=== PATIENT | female | born 1990 ===

== ENCOUNTER 2017-06-03 22:53 | Emergency (ER) | payer SELFPAY ==
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
[2017-06-04 00:10] VITALS: BP 127/73; PULSE 85; RESP 15; TEMP 98.2
[2017-06-04 00:15] VITALS: O2SAT 99
== END 2017-06-04 00:14 | disposition home or self-care (01) ==
LOC: H.ER 22:53
DX: S06.0X0A Concussion without loss of consciousness, initial encounter (principal); Y04.0XXA Assault by unarmed brawl or fight, initial encounter; Y92.9 Unspecified place or not applicable